=== PATIENT | female | born 1940 | race African-American/Black ===

== ENCOUNTER 2024-01-07 13:36 | Emergency (ER) | payer MEDICARE, MEDICAID ==
[~2024-01-07] VITALS: Ht 165.1 cm; Wt 51.0 kg
[2024-01-07 13:46] VITALS: TEMP 97.7; O2SAT 98
[2024-01-07 17:00] VITALS: BP 152/84; PULSE 82; RESP 10; O2SAT 100
== END 2024-01-07 17:45 | disposition home or self-care (01) ==
LOC: ER 14:19
DX: S09.90XA Unspecified injury of head, initial encounter (principal); E11.9 Type 2 diabetes mellitus without complications; I10 Essential (primary) hypertension; V43.52XA Car driver injured in collision with other type car in traffic accident, initial encounter; Y93.89 Activity, other specified; Y92.89 Other specified places as the place of occurrence of the external cause; Y99.8 Other external cause status
CPT/HCPCS: 99284